=== PATIENT | male | born 1970 | race Hispanic/Latino ===

== ENCOUNTER 2024-09-15 11:38 | Emergency (ER) | payer OTHER ==
[~2024-09-15] VITALS: Ht 167.6 cm; Wt 88.5 kg
--- NOTE | 2024-09-15 12:42 | HMCIMG ---
Exam Type: SHOULDER COMP 2+VWS LT Clinical Information: restricted rom Comparison: None FINDINGS: The acromioclavicular joint shows hypertrophy, which may impinge upon the rotator cuff tendon. The glenohumeral joint is preserved. Visualized portions of the humerus, the scapula, and the clavicle as well as the upper ribcage are unremarkable. No pulmonary pathology is noted in the visualized portions of the upper lobe. The soft tissues are preserved. There are no other gross abnormalities. IMPRESSION: Degenerative changes of the acromioclavicular joint with hypertrophy.
[2024-09-15] MEDS: ketOROlac 30MG VIAL (30MG/ML) IM ONE (12:58)
[2024-09-15] MEDS: HYDROcodone/APAP 5/325 1 TAB TABLET PO ONE (12:58)
[2024-09-15] MEDS ORDERED: KETO10TA2 PO (13:15)
--- NOTE | 2024-09-15 13:25 | ERN ---
General Chief Complaint: Shoulder Injury/Pain Stated Complaint: SEVER PAIN IN SHOULDER Time Seen by MD: 11:39 Time Seen by Midlevel: 11:39 Source: patient History of Present Illness Initial Comments The patient is a 53-year-old male presenting to the emergency department for evaluation of left shoulder pain that started three days ago and progressively worsened. The patient is now unable to lift the left shoulder which concerned him so he decided to report to the ER for further evaluation. He specifically denies any fall or direct injury to the area. Allergies: Coded Allergies: No Known Allergies (Unverified Allergy, Unknown, 09/15/24) Home Meds Active Scripts Ketorolac Tromethamine (Ketorolac Tromethamine) 10 Mg Tablet, 1 TAB PO BID for pain for 5 Days, #10 TAB 0 Refills Prov:TANJA STEELE 09/15/24 Past Medical History Past Medical History: No Pertinent History Past Surgical History: None ROS Dictation CONSTITUTIONAL: Negative except for HPI HEAD/FACE: Negative except for HPI EENT: Negative except for HPI RESPIRATORY: Negative except for HPI GASTROINTESTINAL/ABDOMINAL: Negative except for HPI GENITOURINARY: Negative except for HPI MUSCULOSKELETAL: Negative except for HPI INTEGUMENTARY: Negative except for HPI NEUROLOGICAL/PSYCH: Negative except for HPI HEMATOLOGIC/LYMPHATIC: Negative except for HPI All Systems Negative, Except as noted above. 13 point review of systems assessed and all negative except for above. Physical Exam Physical Exam Dictation Vital Signs reviewed General Appearance: Alert, oriented x 3, no acute distress, well developed, nourished. Head and Face: non-traumatic. Eyes: PERRL, pink conjunctivas, eyelid no trauma, anterior chamber with arcus senilis. Ears: Pinnas intact and no signs of trauma or erythema ear canals clear and no discharge TM no erythema Nose: No discharge, no bleeding. Oropharynx: Mouth normal, tongue pink, pharynx clear,no erythema, tonsils no exudates, no abscesses noted, mucous membrane moist Neck: Supple, non-tender, no thyromegaly, no masses, no JVD, no bruits Breast:Deferred Chest:No tenderness, no crepitus, no paradoxical movement, no retractions Lungs:Clear, well-ventilated, symmetric, no rales, no wheezing, no rhonchi, no stridor, good breath sounds bilaterally Heart: Regular rate, regular rhythm, no murmur, no gallops Vascular: no peripheral edema, Abdomen: Soft, positive bowel sounds, nondistended, no guarding, nontender, no rebound, no masses no hepatomegaly, no splenomegaly, no Smallwood's sign, no hernias. Rectal: Deferred Genital: Deferred Neurological: Normal speech, motor function intact, sensory function intact Musculoskeletal: Neck nontender, full range of motion, back nontender, full range of motion, Extremities: Restricted range of motion of the left shoulder secondary to pain, no obvious signs of external trauma or deformity, neurovascularly intact Skin: Color pink, dry, no turgor, no rash, no lacerations, no abrasions, no contusions. Lymphatic: Deferred MDM MDM: 53-year-old male presenting to the ER with left shoulder pain. On physical examination the patient has restricted range of motion secondary to pain. Left upper extremity is neurovascularly intact. No obvious signs of external trauma or deformity. X-ray shows findings consistent with calcific tendinitis we will discharged home with supportive management. Differential diagnosis: Calcific tendinitis, fracture, dislocation, contusion There are no social concerns with this patient. Prescription drug management Prescriptions will include: Toradol Medical management and examination interpretation discussions were had by me with other qualified healthcare professionals as indicated for the patient's care. ED Course Orders Procedure Category Date Status Time Shoulder Comp 2+Vws Lt RAD 09/15/24 Resulted 12:02 Ketorolac PHA 09/15/24 Complete Tromethamine 30mg/Ml 12:30 Hydrocodone/Apap PHA 09/15/24 Complete 5/325 ([place] 5/325mg) 12:30 Current Medications Medications (Trade) Dose Ordered Sig/Brigette Route PRN Reason Start Time Stop Time Status Last Admin Dose Admin Acetaminophen/ Hydrocodone Bitart (NORco 5/325MG) 1 tab ONCE ONCE PO 09/15/24 12:30 09/15/24 12:31 DC 09/15/24 12:58 Ketorolac Tromethamine (toRADol) 30 mg ONCE ONCE IM 09/15/24 12:30 09/15/24 12:31 DC 09/15/24 12:58 Vital Signs Date Time Temp Pulse Resp B/P (MAP) Pulse Ox O2 Delivery O2 Flow Rate FiO2 09/15/24 13:39 97.9 80 20 135/81 99 Room Air* 0 21 09/15/24 11:58 97.5 80 20 137/83 99 Room Air [facility] [address] [place] [address] IMAGING REPORT Signed PATIENT: HELENA JACKSON MR#: [id number] : 1970 SEX: M AGE: 53 LOCATION: [facility] ORDER 120 STATUS: REG ER REPORT#: [id number] SERVICE 120 REASON: restricted rom ORDERING PHYSICIAN: TANJA STEELE PROCEDURE: SHOL 2V LT - SHOULDER COMP 2+VWS LT Exam Type: SHOULDER COMP 2+VWS LT Clinical Information: restricted rom Comparison: None FINDINGS: The acromioclavicular joint shows hypertrophy, which may impinge upon the rotator cuff tendon. The glenohumeral joint is preserved. Visualized portions of the humerus, the scapula, and the clavicle as well as the upper ribcage are unremarkable. No pulmonary pathology is noted in the visualized portions of the upper lobe. The soft tissues are preserved. There are no other gross abnormalities. IMPRESSION: Degenerative changes of the acromioclavicular joint with hypertrophy. DICTATED BY: KATHRYN YARBROUGH MD DATE: 09/15/241239 ELECTRONICALLY SIGNED BY: KATHRYN YARBROUGH MD DATE: 09/15/241241 DX & DISP Disposition: Discharge Departure Impression: Primary Impression: Calcific tendinitis of left shoulder Condition: Stable Scripts Ketorolac Tromethamine (Ketorolac Tromethamine) 10 Mg Tablet 1 TAB PO BID for pain for 5 Days, #10 TAB 0 Refills Prov: TANJA STEELE 09/15/24 Additional Instructions: Your shoulder x-ray shows your AC joint showing calcifications. These calcifications may impinge on your rotator cuff tendon causing pain and restricted range of motion. The treatment for this is usually non operative. NSAIDs are usually the treatment. I would also suggest physical therapy. Avoid immobilization as this can worsen your symptoms. You will need to see an criminal research specialist for further evaluation. Referrals: SELF,REFERRAL (PCP) VITOR GALARZA MD Time of Disposition: 13:14 I have reviewed the case, and I agree with, Diagnosis and Plan I performed the substantive portion of the visit. I have reviewed and personally made and approve the management plan that is documented in the note by myself or the CAMELIA. I acknowledge for responsibility for the patient's management plan. TANJA STEELE September 15, 2024 13:25 QUE WOOD DO September 16, 2024 08:09
[2024-09-15 13:39] VITALS: BP 135/81; PULSE 80; RESP 20; TEMP 97.9; O2SAT 99
== END 2024-09-15 13:44 | disposition home or self-care (01) ==
LOC: EDH 11:38
DX: M75.32 Calcific tendinitis of left shoulder (principal)
CPT/HCPCS: 99283; 73030; 96372; J1885